=== PATIENT | male | born 1980 | race Caucasian/White ===

== ENCOUNTER 2020-12-05 20:28 | Emergency (ER) | payer BC, SELFPAY ==
[2020-12-05 21:39] VITALS: BP 125/81; PULSE 79; RESP 18; TEMP 37; O2SAT 94; BMI 35.2
[2020-12-05 22:00] LABS: Basophils % 0.4 %; Hematocrit 46.9 % (42.0-52.0); Hemoglobin 15.6 g/dL (11.7-16.6); Lymphocytes # 0.5 10^3/uL (0.8-4.8); Lymphocytes % 16.4 %; Mean Corpuscular HGB Conc 33.3 g/dL (30.0-36.0); Mean Corpuscular Volume 81.1 fL (80-94); Mean Platelet Volume 10.5 fL (7.4-10.4); Monocytes # 0.3 10^3/uL (0.2-0.9); Monocytes % 10.2 %; Neutrophils % 72.6 %; Nucleated Red Blood Cells % 0 %; Platelet Count 179 10^3/cmm (130-400); Red Blood Count 5.78 10^6/uL (4.1-5.3); Red Cell Distribution Width 13.2 % (12.1-15.1); White Blood Count 2.8 10^3/uL (4.0-10.0)
[2020-12-05 22:18] LABS: Alanine Aminotransferase 33 U/L (0-41); Albumin Level 4.7 g/dL (3.5-5.2); Alkaline Phosphatase 81 IU/L (40-130); Aspartate Amino Transferase 26 U/L (0-40); Blood Urea Nitrogen 10 mg/dL (6-20); Calcium 8.8 mg/dL (8.5-10.5); Carbon Dioxide 19 mmol/L (22-29); Chloride 99 mmol/L (98-107); Globulin 2.7 g/dL (1.3-4.6); Glomerular Filtration Rate 93.9 mL/min (90-130); Glucose 110 mg/dL (65-115); Lipase 40 U/L (13-60); Osmolality Calculated 278 mOsm/kg (285-295); Sodium 134 mmol/L (136-145); Total Bilirubin 0.9 mg/dL (0.15-1.2); Total Protein 7.4 g/dL (6.6-8.7)
--- NOTE | 2020-12-05 23:19 | CTR_ITS ---
PROCEDURE INFORMATION: Exam: CT Abdomen And Pelvis With Contrast Exam date and time: 12/05/2020 11:19 PM Age: 40 years old Clinical indication: Abdominal pain; Localized; Right lower quadrant (rlq); Patient HX: C/O rlq abd pain w fever TECHNIQUE: Imaging protocol: Computed tomography of the abdomen and pelvis with contrast. Radiation optimization: All CT scans at this facility use at least one of these dose optimization techniques: automated exposure control; mA and/or kV adjustment per patient size (includes targeted exams where dose is matched to clinical indication); or iterative reconstruction. Contrast material: OMNI 300; Contrast volume: 95 ml; Contrast route: INTRAVENOUS (IV); COMPARISON: No relevant prior studies available. RADIATION DOSE METRICS: Total DLP (mGy-cm): 1928.3 FINDINGS: Liver: Hepatic steatosis. Gallbladder and bile ducts: Normal. No calcified stones. No ductal dilation. Pancreas: Normal. No ductal dilation. Spleen: Normal. No splenomegaly. Adrenal glands: Normal. No mass. Kidneys and ureters: Left kidney cyst, negative for follow-up advised. Stomach and bowel: Mildly prominent fluid in the small bowel may reflect an enteritis. Moderate constipation. Appendix: No evidence of appendicitis. Intraperitoneal space: Unremarkable. No free air. No significant fluid collection. Vasculature: Unremarkable. No abdominal aortic aneurysm. Lymph nodes: Several prominent left inguinal lymph nodes measuring up to 19 mm, nonspecific. Urinary bladder: Unremarkable as visualized. Reproductive: Unremarkable as visualized. Bones/joints: Unremarkable. No acute fracture. Soft tissues: Unremarkable. CT/CT abdomen pelvis w con* [id number] IMPRESSION: 1. Mildly prominent fluid in the small bowel may reflect an enteritis. 2. Hepatic steatosis. 3. Several prominent left inguinal lymph nodes measuring up to 19 mm, nonspecific. 4. Moderate constipation. Radiation Dose CTDIVOL = (mGy): DLP = 1928.3 (mGy-cm)
[2020-12-05 23:26] VITALS: BP 114/96; PULSE 84; RESP 18; O2SAT 97
--- NOTE | 2020-12-05 23:26 | ED_ITS ---
HPI - Abdominal Pain General: Chief Complaint: Abdominal Pain Stated Complaint: lower right abdomen pain, fever Time Seen by Provider: 12/05/20 23:19 History of Present Illness: HPI narrative: Patient come in for abd pain since Sunday, worst tonite. Fever on and off since this time. Increase RLQ abd pain. Denies any chronic medical problems or routine medications. Has take some ibuprofen at 1800 this evening with last PO intake MD elicited complaint: abdominal pain Pertinent past history: none Onset (ago): day(s) Pain Consistency: intermittent Location: RLQ Severity: moderate Quality: aching Radiation: none Migration to: no migration Exacerbating factors: nothing Relieving factors: nothing Associated Symptoms: Reports constipation Review of Systems General: Reports: 10 or more systems reviewed and unremarkable except in HPI and below GI: Reports: abdominal pain and constipation Physical Exam Const: COMMON NORMALS: no acute distress and patient oriented x3 GENERAL APPEARANCE: cooperative HENMT: COMMON NORMALS: normocephalic and Normal external nose present HEAD & SCALP: normal to inspection and normocephalic NOSE: Normal external nose present MOUTH: Normal oral and palatal mucosa present Eye: GENERAL EYE: appearance normal, both eyes and all related structures Neck/C-Spine: COMMON NORMALS: full ROM Chest: COMMONS NORMALS: normal inspection of the chest Resp: COMMON NORMALS: normal respiratory effort EFFORT & INSPECTION: Yes able to speak in complete sentences Cardio: COMMON NORMALS: regular rate and regular rhythm RATE: regular rate RHYTHM: regular rhythm GI: COMMON NORMALS: Soft to palpation INSPECTION: Yes normal to inspection AUSCULTATION: Yes normoactive bowel sounds PALPATION: Yes Soft to palpation and Yes Tenderness to palpation present (GI) Details: RLQ : COMMON NORMALS: Yes no CVA tenderness BLADDER/KIDNEY EXAM: Yes no CVA tenderness Back/Pelvis: COMMON NORMALS: no CVA tenderness and thoracic and lumbar spine normal to inspection Extremity: COMMON NORMALS: normal to inspection Neuro: COMMON NORMALS: patient oriented x3 and moves all extremities Psych: COMMON NORMALS: mental status grossly normal and cooperative Skin: COMMON NORMALS: no rashes or lesions noted GENERAL SKIN EXAM: no rashes or lesions noted Course Vital Signs: Vital signs: Vital Signs Temperature 98.6 F 12/05/20 21:39 Pulse Rate 84 12/05/20 23:26 Respiratory Rate 18 12/05/20 23:26 Blood Pressure 114/96 12/05/20 23:26 Pulse Oximetry 97 12/05/20 23:26 MDM - Abdominal Pain MDM Narrative: Medical decision making narrative: patient comes in for fever for three days and some right lower quadrant abd pain, patient was concerned for appendicitis. On exam bowel sound are present, no rebound tenderness, mild pain on palpation to right lower quadrant. Vital signs are normal. Differential diagnosis appendicitis, lymphadenitis, fever of unknown origin, renal stone. labs note low wbc's with remainder of lab unremarkable. patient was medicated with iv fluids, 15 mg ketorlac ivp with relief in symptoms of chills and pain. I am concern for tick borne illness due to patient several tick bites all the time, and persistent fever. CT scan noted no appendicitis or other remarkable acute illness. tick panel was added to blood work along with blood cultures. Patient was agreeable to treatment plan. Lab Data: Labs: Lab Results 12/05/20 12/05/20 Range/Units 21:55 21:55 WBC 2.8 L (4.0-10.0) 10^3/ uL RBC 5.78 H (4.1-5.3) 10^6/u L Hgb 15.6 (11.7-16.6) g/dL Hct 46.9 (42.0-52.0) % MCV 81.1 (80-94) fL MCH 27.0 L (28.0-34.0) pg MCHC 33.3 (30.0-36.0) g/dL RDW 13.2 (12.1-15.1) % Plt Count 179 (130-400) 10^3/c mm MPV 10.5 H (7.4-10.4) fL Neut % (Auto) 72.6 % Lymph % (Auto) 16.4 % Pettis % (Auto) 10.2 % Eos % (Auto) 0.0 % Baso % (Auto) 0.4 % Neut # (Auto) 2.00 (1.8-7.7) 10^3/u L Lymph # (Auto) 0.5 L (0.8-4.8) 10^3/u L Pettis # (Auto) 0.3 (0.2-0.9) 10^3/u L Eos # (Auto) 0.0 (0.0-0.8) 10^3/u L Baso # (Auto) 0.0 (0.0-0.1) 10^3/u L Nucleated RBC % (a uto) 0 % Nucleated RBCs # 0.0 /100WBC Sodium 134 L (136-145) mmol/L Potassium 4.0 (3.5-5.1) mmol/L Chloride 99 (98-107) mmol/L Carbon Dioxide 19 L (22-29) mmol/L Anion Gap 20.0 H (5-19) BUN 10 (6-20) mg/dL Creatinine 0.9 (0.7-1.2) mg/dL GFR Calculation 93.9 (90-130) mL/min Glucose 110 (65-115) mg/dL Calculated Osmolal ity 278 L (285-295) mOsm/k g Calcium 8.8 (8.5-10.5) mg/dL Total Bilirubin 0.9 (0.15-1.2) mg/dL AST 26 (0-40) U/L ALT 33 (0-41) U/L Alkaline Phosphata se 81 (40-130) IU/L Total Protein 7.4 (6.6-8.7) g/dL Albumin 4.7 (3.5-5.2) g/dL Globulin 2.7 (1.3-4.6) g/dL Lipase 40 (13-60) U/L Discharge Plan Discharge Patient Disposition: Home Clinical Impression: Fever Qualifiers: Fever type: unspecified Qualified Code(s): R50.9 - Fever, unspecified Abdominal pain Qualifiers: Abdominal location: right lower quadrant Qualified Code(s): R10.31 - Right lower quadrant pain Condition: Stable Prescriptions: New doxycycline monohydrate 100 mg capsule 100 mg PO BID 14 Days Qty: 28 RF: 0 Discharge Orders: Discharge ED (Routine); Ordered 12/06/20 Ordered By: Cayetano Bain Discharge Diet: Usual diet Discharge Activity: Increase activity as tolerated Patient Instructions: Abdominal Pain (ED), Opioid Safety Activity Restrictions/Additional Instructions: Recheck CBC in 2 weeks, Drink plenty of fluids. Acetaminophen and ibuprofen for pain and fever. Take antibiotics as directed. Follow-up with primary care in three days for recheck, Return to ER for worsening symptoms or new concerns Coding Level of Care Code ED Pneumatic Systems Operator for Chg Fwd Exam Comprehensive
[2020-12-05] MEDS: iohexol 300 mg/mL 100 mL Btl IV (23:40)
[2020-12-05] MEDS: sodium chloride 0.9% 500 ML 999 ML IV (23:55)
[2020-12-05] MEDS: ketorolac 30 mg/mL INJ 15 MG IVP (23:56)
[2020-12-06] MEDS: doxycycline 100 mg Tablet PO (01:25)
[2020-12-06 01:30] VITALS: BP 122/82; PULSE 91; RESP 16; O2SAT 97
[2020-12-07 12:33] LABS: Lyme AB Screen <0.90 index
[2020-12-09 17:28] LABS: E. Chaffeensis AB IGG <1:64; E. Chaffeensis AB IGM <1:20
[2020-12-09 22:27] LABS: RMSF IGG NOT DETECTED; RMSF IGM NOT DETECTED
== END 2020-12-06 01:32 | disposition home or self-care (01) ==
PROVIDERS: Emergency Medicine; Emergency Provider Nurse Practitioner Family
DX: R10.31 Right lower quadrant pain (principal); R50.9 Fever, unspecified
CPT/HCPCS: 74177; 80053; 83690; 85025; 86618; 86666; 86757; 87040; 96374; 99284; J1885; J7040; Q9967